=== PATIENT | male | born 1940 | race African-American/Black ===

== ENCOUNTER → 2017-07-09 | Outpatient (CLI) | payer BC ==
--- NOTE | 2017-07-09 10:08 | PCVCIMAG ---
APPROVED REPORT Study performed: 07/09/2017 07:35:42 EXAM: Comprehensive 2D, Doppler, and color-flow Echocardiogram Patient Location: Echo lab Status: routine BSA: 2.18 HR: 59 bpmBP: 140/80 mmHg Rhythm: NSR Other Information Study Quality: Technically Limited Indications Murmur Dyspnea 2D Dimensions LVEF(%): 71.51 (>50%) IVSd: 12.42 (7-11mm)LVOT Diam: 24.12 (18-24mm) LVDd: 30.40 mm PWd: 12.29 (7-11mm)Ascending Ao: 36.61 (22-36mm) LVDs: 18.41 (25-40mm) Left Atrium: 34.13 (27-40mm) Aortic Root: 36.48 mm LV Single Plane 4CH: 58.50 % Ordoñez's LVEF: 71.51 % Volumes Left Atrial Volume (Systole) Single Plane 4CH: 14.24 mL Aortic Valve AoV Peak Nick.: 0.88 m/s AO Peak Gr.: 3.44 mmHgLVOT Max P.07 mmHg LVOT Max V: 0.72 m/s HEBERT Vmax: 3.73 cm2 Mitral Valve E/A Ratio: 0.6 MV Decel. Time: 382.38 ms MV E Max Nick.: 0.51 m/s MV A Nick.: 0.82 m/s IVRT: 134.95 ms Tricuspid Valve TR Peak Nick.: 2.15 m/s TR Peak Gr.: 18.57 mmHg Left Ventricle The left ventricle is normal size. There is normal LV segmental wall motion. There is normal left ventricular wall thickness. Left ventricular systolic function is normal. The left ventricular ejection fraction is within the normal range. LVEF is 60-65%. This study is not technically sufficient to allow evaluation of the LV diastolic function. Right Ventricle The right ventricle is normal size. The right ventricular systolic function is normal. Atria The left atrium size is normal. The right atrium size is normal. Aortic Valve The aortic valve is normal in structure. No aortic regurgitation is present. There is no aortic valvular stenosis. Mitral Valve The mitral valve is normal in structure. There is no mitral valve regurgitation noted. No evidence of mitral valve stenosis. Tricuspid Valve The tricuspid valve is normal in structure. There is no tricuspid valve regurgitation noted. Pulmonic Valve The pulmonary valve is normal in structure. There is no pulmonic valvular regurgitation. Great Vessels The aortic root is normal in size. IVC is normal in size and collapses with >50% inspiration Pericardium There is no pericardial effusion. <Conclusion> The left ventricle is normal size. LVEF is 60-65%. The aortic valve is normal in structure. The mitral valve is normal in structure. The tricuspid valve is normal in structure. The pulmonary valve is normal in structure. There is no pericardial effusion.
--- NOTE | 2017-07-10 11:05 | PCVCIMAG ---
APPROVED REPORT Exam: Nuclear Stress Test Indication: Chest pain, Dyspnea Patient Location: Out-Patient Stress Nurse: Katalina Joseph RN, RICHMOND Mcmahon Tech:Dorothy Grazyna [facility] Ht: 5 ft 8 in Wt: 178 lbs BSA: 1.94 m2 HR: 71 bpm BP: 132/79 mmHg BMI: 27.0 Rhythm: NSR, First degree AV Block, RBBB, Bifascicular Block Medical History Medical History: AGE, Hyperlipidemia, HTN, DM, Beryllium Exposure, Sarcoid Medications: Norvasc, Atorvastatin, Lisinopril-HCTZ Allergies: No known drug allergies Pretest Chest Pain Characteristics: No chest pain Exercise History: Physically active Physical Disabilities: Knees NM EXAM: Myocardial Perfusion REST/STRESS Imaging Protocol: Rest Tc-99m/Stress Tc-99m 1 day Resting Data Rest SPECT myocardial perfusion imaging was performed in supine position 45 minutes following the intravenous injection of 14.5 mCi of Tc-99m Sestamibi. Time of rest injection: 0830 Date: 07/09/2017 Administration Route: IV Administration Site: Right AC Pharmacologic Stress Pharmacologic stress test was performed by injecting Regadenoson 0.4 mg IV push followed by the intravenous injection of 43.7 mCi of Tc-99m Sestamibi. Time of stress injection: 1010 Date: 07/09/2017 Administration Route: IV Administration Site: Right AC Gated Stress SPECT was performed 45 minutes after stress injection. The images were gated to evaluate regional wall motion and calculate left ventricular ejection fraction. Perfusion This area thickens and moves normally and is most consistent with small area of ischemic. There is a medium area of moderately reduced uptake in the apical segment of the anterior wall which is seen on the stress images and improves on the resting images. Wall Motion Normal left ventricular wall motion. Nuclear Conclusion 1. INTERMEDIATE RISK STUDY BASED ON A SMALL REGION OF APPARENT ISCHEMIA INVOLVING THE SETAL APICAL REGION Interpreted by: Latanya Womack MD Electronically Approved: 07/10/2017 11:03:03 Stress Test Details Stress Test: Pharmacologic stress was paired with low level exercise. Reason for pharmacologic stress test: physical limitation. HR Resting HR: 65 bpmMax Heart Rate (APMHR): 144 bpm Max HR Achieved: 105 bpmTarget HR (85% APMHR): 122 bpm % of APMHR: 72 Recovery HR: 87 bpm BP Resting BP: 168/79 mmHg Max BP: 156/78 mmHg ECG Resting ECG: Sinus Rhythm, RBBB Stress ECG: Sinus Tachycardia, RBBB Recovery ECG: Sinus Rhythm, RBBB Clinical Reason for Termination: Completed protocol Stress Symptoms: Dyspnea Exercise duration: 4 min 0 sec Exercise capacity: 1.6 METs Symptoms resolved with caffeine. Stress ECG Conclusion 1. ADEQUATE RESPONSE TO IV LEXISCAN 2. INADEQUATE HEART RATE FOR ECG DIAGNOSIS <Conclusion> 1. ADEQUATE RESPONSE TO IV LEXISCAN 2. INADEQUATE HEART RATE FOR ECG DIAGNOSIS
== END | disposition home or self-care (01) ==
LOC: PCVCIMAG 07:33 → EDUNIT# 11:31 → EDSTATUS 11:40
PROVIDERS: ATTEND Internal Medicine Cardiovascular Disease
DX: I10 Essential (primary) hypertension (principal); R07.9 Chest pain, unspecified; R01.1 Cardiac murmur, unspecified; R06.09 Other forms of dyspnea; E11.9 Type 2 diabetes mellitus without complications; I44.0 Atrioventricular block, first degree; I45.10 Unspecified right bundle-branch block; I45.2 Bifascicular block; E78.5 Hyperlipidemia, unspecified; R00.0 Tachycardia, unspecified
CPT/HCPCS: 78452; 93017; 93306; A9500; J2785

== ENCOUNTER → 2017-07-21 | Outpatient (CLI) | payer BC | END | disposition home or self-care (01) | LOC: PCVCCLINIC 11:16 | PROVIDERS: ATTEND Internal Medicine | DX: E11.9 Type 2 diabetes mellitus without complications (principal); R07.9 Chest pain, unspecified; R94.39 Abnormal result of other cardiovascular function study; R06.00 Dyspnea, unspecified; E78.5 Hyperlipidemia, unspecified; Z79.899 Other long term (current) drug therapy | CPT/HCPCS: 93005; G0463 ==

== ENCOUNTER → 2017-08-11 | Outpatient (CLI) | payer BC ==
[~2017-08-11] MED LIST: REGADENOSON 0.4 MG/5 ML DISP.SYRIN. IV ONE
--- NOTE | 2017-08-11 12:38 | PCVCIMAG ---
EXAM: VENOUS DUPLEX RIGHT LOWER EXTREMITY INDICATION: Leg pain and swelling. FINDINGS: Right leg: No thrombus in the common femoral, main femoral, or popliteal veins. These veins are compressible with phasic flow. Calf veins are unremarkable where seen. Incidental note is made of nonocclusive thrombus in the mid and lower right external iliac vein. IMPRESSION: Incidental note is made of nonocclusive thrombus in the mid and lower right external iliac vein. Otherwise no evidence of deep venous thrombosis in the right lower extremity as detailed above. Dr. Womack was notified of these findings. LOC:[id number]
== END | disposition home or self-care (01) ==
LOC: PCVCIMAG 10:55
PROVIDERS: ATTEND Internal Medicine
DX: M79.605 Pain in left leg (principal); M79.89 Other specified soft tissue disorders
CPT/HCPCS: 93971; J2785

== ENCOUNTER → 2018-03-02 | Outpatient (CLI) | payer BC | END | disposition home or self-care (01) | LOC: PCVCCLINIC 09:54 | DX: Z01.810 Encounter for preprocedural cardiovascular examination (principal); I25.10 Atherosclerotic heart disease of native coronary artery without angina pectoris; E78.5 Hyperlipidemia, unspecified; I10 Essential (primary) hypertension | CPT/HCPCS: 80061; 93005; G0463 ==

== ENCOUNTER → 2018-09-07 | Outpatient (CLI) | payer BC | END | disposition home or self-care (01) | LOC: PCVCCLINIC 11:23 | PROVIDERS: ATTEND Internal Medicine | DX: I10 Essential (primary) hypertension (principal); I25.10 Atherosclerotic heart disease of native coronary artery without angina pectoris; E11.9 Type 2 diabetes mellitus without complications; E78.5 Hyperlipidemia, unspecified; N52.35 Erectile dysfunction following radiation therapy | CPT/HCPCS: 36415; 80061; 93005; G0463 ==

== ENCOUNTER → 2019-03-08 | Outpatient (CLI) | payer BC | END | disposition home or self-care (01) | LOC: PCVCCLINIC 11:50 | PROVIDERS: ATTEND Internal Medicine | DX: I25.10 Atherosclerotic heart disease of native coronary artery without angina pectoris (principal); E78.5 Hyperlipidemia, unspecified; I10 Essential (primary) hypertension; E11.9 Type 2 diabetes mellitus without complications | CPT/HCPCS: 36415; 80061; 93005; G0463 ==